=== PATIENT | female | born 1990 | race Caucasian/White ===

== ENCOUNTER → 2021-07-18 | Outpatient (CLI) | payer BC ==
--- NOTE | 2021-07-19 08:18 | MR ---
EXAMINATION TYPE: MR knee RT wo con DATE OF EXAM: 07/18/2021 COMPARISON: None. HISTORY: Right knee pain x 1 month, no trauma. TECHNIQUE: Multiplanar, multisequence imaging of the right knee is performed without IV contrast. FINDINGS: MEDIAL MENISCUS: Anterior and posterior horns are intact without tear. LATERAL MENISCUS: Anterior and posterior horns are intact without tear. CRUCIATE LIGAMENTS: The posterior cruciate ligament is intact and unremarkable. Anterior cruciate lig ament is torn with proximal fragment seen sagittal image 19. COLLATERAL LIGAMENTS: The medial collateral ligament and lateral collateral ligament complex are inta ct. Mild fluid signal surrounds medial collateral ligament. EXTENSOR MECHANISM: Visualized quadriceps and patellar tendons are intact. EFFUSION: Small suprapatellar joint effusion. POPLITEAL CYST: No popliteal/ramirez cyst. TRICOMPARTMENT SPACES: Tricompartment joint spaces are maintained. No significant spurring is seen. CARTILAGE: Tricompartment articular cartilage is preserved. BONE MARROW SIGNAL: Heterogeneous increased T2 signal involving the posterior aspect of the medial ti bial plateau and to lesser degree lateral tibial plateau posterior aspect. There is increased T2 sign al involving the anterior lateral aspect of the distal femoral condyle. Growth plates appear closed. OTHER: No additional significant abnormality is appreciated. IMPRESSION: 1. Complete ACL tear with associated osseous contusion injury involving the lateral aspect of the dis sabrina lateral femoral condyle and the posterior aspect of the lateral tibial plateau. 2. Mild MCL sprain injury. 3. No discrete meniscal tear. 4. Additional focal osseous contusion involving the posterior aspect of the medial tibial plateau. 5. Small suprapatellar joint effusion.
== END | disposition home or self-care (01) ==
LOC: RADMRIMAIN 18:49
PROVIDERS: ATTEND Orthopaedic Surgery
DX: S83.411A Sprain of medial collateral ligament of right knee, initial encounter (principal); S83.511A Sprain of anterior cruciate ligament of right knee, initial encounter; M25.461 Effusion, right knee; S80.01XA Contusion of right knee, initial encounter; X58.XXXA Exposure to other specified factors, initial encounter

== ENCOUNTER → 2023-02-14 | Outpatient (CLI) | payer BC ==
--- NOTE | 2023-02-18 23:01 | MR ---
EXAMINATION TYPE: MR knee RT wo con DATE OF EXAM: 02/14/2023 COMPARISON: 07/18/2021 HISTORY: 32-year-old female Right knee injury/pain, hx of torn ACL. TECHNIQUE: Multiplanar, multisequence imaging of the right knee is performed without IV contrast. FINDINGS: There is continued ACL rupture. PCL, MCL, and LCL complex appear intact. Continued versus recurrent focal edema along the posterior lips of the tibial plateau. However, on th e present exam, corresponding bone bruises are not seen along the femoral condyles. There is interval development of a posterior root tear of the lateral meniscus. The meniscal femoral ligament remains intact. No focal high-grade chondral defect within the lateral compartment. Interval development of extensive multidirectional complex tear throughout the medial meniscus. Some redundant meniscal tissue is noted near the posterior root, coronal image 27. The body of the meniscu s has become severely diminutive. Patellofemoral compartment articular cartilage is maintained. Extensor mechanism is intact. Moderate knee joint effusion. No Barrera's cyst. Normal popliteal artery anatomy and muscle bulk. No suspicious bone marrow replacement. IMPRESSION: 1. Redemonstrated ACL rupture. There are recurrent bone bruises along the posterior lips of the tibia l plateau. Findings may reflect sequela of knee instability and recurrent pivot shift impaction injur ies. Clinically correlate. 2. Interval development of a posterior root tear of the lateral meniscus. The meniscofemoral ligament remains intact to anchor the posterior horn in place. 3. Interval development of complex multidirectional tears throughout the medial meniscus. Some redund ant meniscal tissue is noted near the posterior root though no discrete flipped fragment is seen. 4. Moderate knee joint effusion.
== END | disposition home or self-care (01) ==
LOC: RADMRIMAIN 05:55
PROVIDERS: ATTEND Orthopaedic Surgery Sports Medicine
DX: S83.281A Other tear of lateral meniscus, current injury, right knee, initial encounter (principal); S83.241A Other tear of medial meniscus, current injury, right knee, initial encounter; M25.461 Effusion, right knee; X58.XXXA Exposure to other specified factors, initial encounter

== ENCOUNTER → 2023-10-04 | Outpatient (CLI) | payer BC ==
--- NOTE | 2023-10-05 15:01 | MR ---
EXAMINATION TYPE: MR knee RT wo con DATE OF EXAM: 10/04/2023 10:19 AM CLINICAL INDICATION:Female, 33 years old with history of S83.206A unspecified TEAR OF R MENISCUS, CUR RENT INJURY; PHH, Rt knee pain, sports injury COMPARISON: MRI right knee of February 14, 2023 TECHNIQUE: Multi planar, multi sequence imaging was performed of the knee including: Triplane proton density fat-saturated images and T1-weighted imaging. No Gadolinium was given. IV Contrast: cc (none if empty) FINDINGS: Medial meniscus: No tear identified. The body of the medial meniscus is attenuated which may katharine dante prior surgery. Medial femorotibial cartilage: Intact Medial collateral ligament: Intact Lateral meniscus: Intact Lateral femorotibial cartilage: Intact Lateral collateral ligament complex: Intact Patellofemoral alignment: Normal Patellofemoral cartilage: Intact Extensor mechanism: Intact. Joint/bursal fluid: Moderate amount Muscles/tendons: The patellar tendon, quadriceps tendon, IT band, pes anserinus tendons, semimembrano rosa maria tendon, popliteus tendon, and biceps femoris tendon are all within normal limits. Bone marrow: Normal. Anterior cruciate ligament: Intact ACL graft Posterior cruciate ligament: Intact. Soft tissues: Unremarkable. IMPRESSION: No definitive evidence to suggest new meniscal tear nor ligamentous injury. No medial meniscal tear identified. The body of the medial meniscus is attenuated which may indicate prior surgery. Intact ACL graft. Moderate joint effusion.
== END | disposition home or self-care (01) ==
LOC: RADMRIMAIN 09:31
PROVIDERS: ATTEND Orthopaedic Surgery Sports Medicine
DX: S83.206A Unspecified tear of unspecified meniscus, current injury, right knee, initial encounter (principal); M25.461 Effusion, right knee; X58.XXXA Exposure to other specified factors, initial encounter